=== PATIENT | male | born 1985 | race Caucasian/White ===

== ENCOUNTER 2018-03-19 14:03 | Emergency (ER) | payer BC ==
[~2018-03-19] VITALS: Ht 180.3 cm; Wt 82.1 kg
[2018-03-19 14:13] VITALS: Ht 180.3 cm; Wt 82.1 kg
[2018-03-19 17:25] VITALS: BP 125/82
== END 2018-03-19 17:25 | disposition home or self-care (01) ==
LOC: ED 14:03
DX: S42.91XA Fracture of right shoulder girdle, part unspecified, initial encounter for closed fracture (principal); S02.82XA Fracture of other specified skull and facial bones, left side, initial encounter for closed fracture; V49.88XA Car occupant (driver) (passenger) injured in other specified transport accidents, initial encounter; Y93.89 Activity, other specified; Y92.89 Other specified places as the place of occurrence of the external cause; Y99.8 Other external cause status
CPT/HCPCS: 90715; Q0092; Q0162